=== PATIENT | female | born 1960 | race Caucasian/White ===

== ENCOUNTER → 2020-07-22 17:36 | Outpatient (CLI) | payer OTHER, SELFPAY ==
--- NOTE | ~2020-07-22 | MM_ITS ---
EXAMINATION: MM screening [facility] BI w [facility]ia HISTORY: Screening mammogram TECHNIQUE: Craniocaudal and mediolateral oblique 3-D tomosynthesis images were obtained and synthetic 2-D images were generated. CAD analysis was submitted and interpreted. COMPARISON: 07/07/2018, 07/02/2018, 06/29/2016 BREAST PARENCHYMAL COMPOSITION: The breasts are almost entirely fatty. FINDINGS: There is no evidence of suspicious mass, calcification, or architectural distortion to sugg est malignancy in either breast. There has been no suspicious interval change. IMPRESSION: 1. No mammographic evidence of malignancy. 2. Recommend routine screening mammography in one year. BI-RADS Category 1: Negative Reviewed, dictated and finalized at location A. [employer]
--- NOTE | ~2020-07-22 | DEXA_ITS ---
Bone Density Report Name: Lissa Goodson Age: 59 Sex: Female Ethnicity: White Date of : 1960 Indication: postmenopausal; screening for osteoporosis; height loss; Referring Provider: Lorrie Calle Study: Bone densitometry was performed. Exam Date: July 22, 2020 Accession number: [id number] Bone Density: Region BMD T-score Z-score Classification AP Spine (L1-L4) 1.010 -0.3 1.1 Normal Femoral Neck (Left) 0.732 -1.1 0.2 Osteopenia Total Hip (Left) 0.948 0.1 1.0 Normal Femoral Neck (Right) 0.734 -1.0 0.2 Normal Total Hip (Right) 0.922 -0.2 0.8 Normal Total Hip Mean 0.935 -0.1 0.9 Normal World Health Organization criteria for BMD impression classify patients as: Normal (T-score at or above -1.0), Osteopenia (T-score between -1.0 and -2.5), or Osteoporosis (T-score at or below -2.5). 10-year Fracture Risk(1): Major Osteoporotic Fracture 7.1% Hip Fracture 0.4% Reported Risk Factors: [place] (), Neck BMD=0.732, BMI=27.9 (1) FRAX(R) Version 3.08. Fracture probability calculated for an untreated patient. Fracture probability may be lower if the patient has received treatment. Previous Exams: Region Exam Age BMD T-score BMD Change BMD Change Date g/cm2 vs Baseline vs Previous AP Spine(L1-L4) 07/22/2020 59 1.010 -0.3 -0.150* -0.024* 07/02/2017 56 1.035 -0.1 -0.126* -0.057* 06/17/2015 54 1.091 0.4 -0.069* -0.069* 05/14/2013 52 1.160 1.0 Total Hip(Left) 07/22/2020 59 0.948 0.1 -0.094* -0.037* 07/02/2017 56 0.985 0.4 -0.057* 0.022 06/17/2015 54 0.963 0.2 -0.079* -0.079* 05/14/2013 52 1.042 0.8 Total Hip(Right) 07/22/2020 59 0.922 -0.2 -0.111* -0.011 07/02/2017 56 0.934 -0.1 -0.100* -0.011 06/17/2015 54 0.945 0.0 -0.089* -0.089* 05/14/2013 52 1.034 0.8 *Denotes significance at 95% confidence level, LSC for AP Spine = 0.022 g/cm2, LSC for Total Hip = 0.027 g/cm2 Clinical Information Provided by Patient: Has used the following medications: Vitamin D, MULTI VIT Patient maximum height was 63.5 Menopause Age: 52 Drinks caffeinated beverages Onset of menses at age 12 Number of children 2 Impression: The patient has low bone mass, based on the Left Femoral Neck T-score. The patient has an estimated ten-year
== END ==
PROVIDERS: Visit Provider Student in an Organized Health Care Education/Training Program
DX: Z12.31 Encounter for screening mammogram for malignant neoplasm of breast (principal); Z78.0 Asymptomatic menopausal state; M85.852 Other specified disorders of bone density and structure, left thigh
CPT/HCPCS: 77063; 77067; 77080

== ENCOUNTER → 2021-05-11 09:18 | Outpatient (CLI) | payer OTHER, SELFPAY ==
[2021-05-11 18:14] LABS: SARS-CoV-2 RNA PCR Negative
== END ==
PROVIDERS: PCP Family Medicine; Visit Provider Physician Assistant
DX: R05.9 Cough, unspecified (principal); Z20.822 Contact with and (suspected) exposure to COVID-19
CPT/HCPCS: C9803; U0003; U0005

== ENCOUNTER 2021-07-18 00:27 | Day surgery (SDC) | payer BC, SELFPAY ==
[2021-07-06 14:17] VITALS: BMI 27.8
--- NOTE | 2021-07-15 13:06 | PM.HPGS ---
History of Present Illness History of Present Illness Consent: Risks, benefits, and alternatives have been discussed and questions answered. Patient agrees to proceed with procedure. Chief complaint: neoplasm screening Narrative: Lissa Goodson is a 60 year old female referred for colon cancer screening. Review of Systems Review of Systems: All systems reviewed & are unremarkable except as noted in HPI and below PMFSH Past Medical History Medical History Anxiety Depression GERD (gastroesophageal reflux disease) Hyperlipemia Surgical History Surgical History H/O left knee surgery History of 2 sections History of breast lump removal History of section History of dilation and curettage History of tubal ligation Family History Family History Father Hypertension, Onset Age: 80 Malignant neoplasm of prostate Family history of lung cancer, Onset Age: 80 Grandparent Family history of malignant neoplasm Family history of lung cancer Social History Social History Smoking status: Never smoker Second hand tobacco smoke exposure: No Alcohol intake: former Alcohol use details: very seldom Substance use type: does not use Living arrangements: with family Spiritual care concerns: No Meds Home Medications and Allergies Home Medications Medication Instructions Recorded Confirmed Type cholecalciferol (vitamin D3) 50 2,000 unit PO DAILY 06/17/19 07/06/21 History mcg (2,000 unit) tablet multivit with 1 tablet PO DAILY 06/17/19 07/06/21 History suhtsriv-teuf-ZK-lutein 8 mg iron-400 mcg-300 mcg tablet clobetasol 0.05 % topical cream 1 applic TOPICAL DAILY #30 g 06/15/20 07/06/21 Rx lorazepam 0.5 mg tablet 0.5 mg PO QHS PRN #30 tablet 03/22/21 07/06/21 Rx ascorbate calcium (vitamin C) 500 500 mg PO DAILY 05/25/21 07/06/21 History mg tablet Allergies Allergy/AdvReac Type Severity Reaction Status Date / Time No Known Allergies Allergy Verified 07/06/21 14:14 Exam Resp: Auscultation: clear to auscultation bilaterally Cardio: Rate: regular rate Rhythm: regular rhythm GI: GI Palp: Yes Soft to palpation and No Tenderness to palpation present (GI) Assessment and Plan Assessment and plan (1) Colon cancer screening: Code(s): Z12.11 - Encounter for screening for malignant neoplasm of colon Status: Acute Assessment and Plan: Colonoscopy with possible biopsy or polypectomy or cautery or injection of substances.
[2021-07-18 06:53] VITALS: BP 110/75; PULSE 77; RESP 20; TEMP 36.4; O2SAT 100; BMI 27.1
[2021-07-18] MEDS: LACTATED RINGERS 1,000 ML 150 ML IV CONT (07:12)
--- NOTE | 2021-07-18 07:15 | WPDANESEPPF ---
Anes - Initial Pre Proc Eval Procedure: Operation Date: 07/18/21 08:00 Proposed Procedures p Screening Colonoscopy - Manohar Gold MD Date/Time: 07/18/21 07:15 Surgeon: Manohar Gold MD Pre Op Diagnosis: neoplasm screening Patient Data Age: 60 Gender: F Height: 1.57 m Weight: 67.3 kg Last Vital Signs Temp 36.4 C 07/18/21 06:53 Pulse 77 07/18/21 06:53 Resp 20 07/18/21 06:53 BP 110/75 07/18/21 06:53 Pulse Ox 100 07/18/21 06:53 Allergies Allergy/AdvReac Type Severity Reaction Status Date / Time No Known Allergies Allergy Verified 07/06/21 14:14 Home Medications Medication Instructions Recorded Confirmed Type cholecalciferol (vitamin D3) 50 2,000 unit PO DAILY 06/17/19 07/06/21 History mcg (2,000 unit) tablet multivit with 1 tablet PO DAILY 06/17/19 07/06/21 History wdwholej-lrjn-DH-lutein 8 mg iron-400 mcg-300 mcg tablet clobetasol 0.05 % topical cream 1 applic TOPICAL DAILY #30 g 06/15/20 07/06/21 Rx lorazepam 0.5 mg tablet 0.5 mg PO QHS PRN #30 tablet 03/22/21 07/06/21 Rx ascorbate calcium (vitamin C) 500 500 mg PO DAILY 05/25/21 07/06/21 History mg tablet Patient hx anesthesia problems: none Family hx anesthesia problems: none Results Review: All pre-operative results and documents have been reviewed as part of the pre-operative evaluation. [facility] Past Medical History Medical History Anxiety Depression GERD (gastroesophageal reflux disease) Hyperlipemia Surgical History Surgical History H/O left knee surgery History of 2 sections History of breast lump removal History of section History of dilation and curettage History of tubal ligation Family History Family History Father Hypertension, Onset Age: 80 Malignant neoplasm of prostate Family history of lung cancer, Onset Age: 80 Grandparent Family history of malignant neoplasm Family history of lung cancer Social History Social History Smoking status: Never smoker Second hand tobacco smoke exposure: No Alcohol intake: former Alcohol use details: very seldom Substance use type: does not use Living arrangements: with family Spiritual care concerns: No Anes - Eval Final PreProcedure Day of Procedure 07/18/21 07:15 Patient weight: overweight Heart: regular rate and rhythm Lungs: clear to auscultation Airway: Mallampati scale class II Neurological: alert and oriented Last oral intake: >/= 8 hours ASA classification: II Emergent: no Anesthetic plan: proceed Anesthesia type and monitoring: general GIVS and standard monitoring Results Review: All pre-operative results and documents have been reviewed as part of the pre-operative evaluation. Informed Consent: The patient's anesthetic plan and its attendant risks and benefits were discussed with the patient/family/POA. Questions were solicited and answers provided to the satisfaction of the patient/family/POA.
[2021-07-18 08:08] VITALS: BP 81/49; PULSE 71; RESP 18; O2SAT 97
[2021-07-18 08:18] VITALS: BP 93/57; PULSE 66; RESP 17; O2SAT 98
[2021-07-18 08:28] VITALS: BP 111/75; PULSE 70; RESP 18; O2SAT 100
== END 2021-07-18 08:35 | disposition home or self-care (01) ==
PROVIDERS: PCP Family Medicine; Visit Provider Internal Medicine Gastroenterology
PROC: 0DJD8ZZ Inspection of Lower Intestinal Tract, Via Natural or Artificial Opening Endoscopic (ICD-10-PCS; CPT 45378; principal; 2021-07-18 08:00)
DX: Z12.11 Encounter for screening for malignant neoplasm of colon (principal); K57.30 Diverticulosis of large intestine without perforation or abscess without bleeding; K64.8 Other hemorrhoids; E78.5 Hyperlipidemia, unspecified; K21.9 Gastro-esophageal reflux disease without esophagitis; F41.8 Other specified anxiety disorders
CPT/HCPCS: 45378; J2704; J7120

== ENCOUNTER → 2021-10-28 07:12 | Outpatient (CLI) | payer BC, SELFPAY ==
--- NOTE | ~2021-10-28 | MM_ITS ---
EXAMINATION: MM screening [facility] BI w [facility] HISTORY: Screening TECHNIQUE: Craniocaudal and mediolateral oblique 3-D tomosynthesis images were obtained and synthetic 2-D images were generated. CAD analysis was submitted and interpreted. COMPARISON: Comparison to multiple prior studies sequentially, with oldest reviewed study dated 05/20. BREAST PARENCHYMAL COMPOSITION: Breast composed of scattered areas of fibroglandular density FINDINGS: There is no evidence of suspicious mass, calcification, or architectural distortion to sugg est malignancy in either breast. There has been no suspicious interval change. IMPRESSION: 1. No mammographic evidence of malignancy. 2. Recommend routine screening mammography in one year. BI-RADS Category 1: Negative Reviewed, dictated and finalized at location A.
== END ==
PROVIDERS: PCP Family Medicine; Visit Provider Student in an Organized Health Care Education/Training Program
DX: Z12.31 Encounter for screening mammogram for malignant neoplasm of breast (principal)
CPT/HCPCS: 77063; 77067

== ENCOUNTER → 2023-02-21 10:17 | Outpatient (CLI) | payer BC, SELFPAY ==
--- NOTE | ~2023-02-21 | MM_ITS ---
EXAMINATION: MM screening [facility] BI w [facility] HISTORY: Screening mammogram TECHNIQUE: Craniocaudal and mediolateral oblique 3-D tomosynthesis images were obtained and synthetic 2-D images were generated. CAD analysis was submitted and interpreted. COMPARISON: 10/28/2021, 07/22/2020 bilateral screening mammogram examinations BREAST PARENCHYMAL COMPOSITION: There are scattered areas of fibroglandular density. FINDINGS: Biopsy marker on the left; history of prior benign left breast biopsies. There is no eviden ce of suspicious mass, calcification, or architectural distortion to suggest malignancy in either dennis ast. There has been no suspicious interval change. IMPRESSION: 1. No mammographic evidence of malignancy. 2. Recommend routine screening mammography in one year. BI-RADS Category 1: Negative Reviewed, dictated and finalized at location A.
--- NOTE | ~2023-02-21 | DEXA_ITS ---
Bone Density Report Name: GELACIO LOVELACE Age: 62 Sex: Female Ethnicity: White Date of : 1960 Indication: postmenopausal; screening for osteoporosis; height loss; Referring Provider: ISAIAH LI M.D. Study: Bone densitometry was performed. Exam Date: February 21, 2023 Accession number: [id number] Bone Density: Region BMD T-score Z-score Classification AP Spine (L1-L4) 1.027 -0.2 1.4 Normal Femoral Neck (Left) 0.758 -0.8 0.6 Normal Total Hip (Left) 0.941 0.0 1.1 Normal Femoral Neck (Right) 0.753 -0.9 0.5 Normal Total Hip (Right) 0.916 -0.2 0.9 Normal Total Hip Mean 0.929 -0.1 1.0 Normal World Health Organization criteria for BMD impression classify patients as: Normal (T-score at or above -1.0), Osteopenia (T-score between -1.0 and -2.5), or Osteoporosis (T-score at or below -2.5). 10-year Fracture Risk: FRAX not reported because: All T-scores for Spine Total, Hip Total, Femoral Neck at or above -1.0 Previous Exams: Region Exam Age BMD T-score BMD Change BMD Change Date g/cm2 vs Baseline vs Previous AP Spine(L1-L4) 02/21/2023 62 1.027 -0.2 -0.134* 0.016 07/22/2020 59 1.010 -0.3 -0.150* -0.024* 07/02/2017 56 1.035 -0.1 -0.126* -0.057* 06/17/2015 54 1.091 0.4 -0.069* -0.069* 05/14/2013 52 1.160 1.0 Total Hip(Left) 02/21/2023 62 0.941 0.0 -0.101* -0.007 07/22/2020 59 0.948 0.1 -0.094* -0.037* 07/02/2017 56 0.985 0.4 -0.057* 0.022 06/17/2015 54 0.963 0.2 -0.079* -0.079* 05/14/2013 52 1.042 0.8 Total Hip(Right) 02/21/2023 62 0.916 -0.2 -0.117* -0.006 07/22/2020 59 0.922 -0.2 -0.111* -0.011 07/02/2017 56 0.934 -0.1 -0.100* -0.011 06/17/2015 54 0.945 0.0 -0.089* -0.089* 05/14/2013 52 1.034 0.8 *Denotes significance at 95% confidence level, LSC for AP Spine = 0.022 g/cm2, LSC for Total Hip = 0.027 g/cm2 Clinical Information Provided by Patient: Has used the following medications: Vitamin D, Calcium Patient maximum height was 63.5 Menopause Age: 52 Drinks caffeinated beverages Onset of menses at age 12 Number of children 2 Impression: The patient has normal bone mass. No significant bone loss was observed. Discussion: BONE DENSITY IS ABOVE THE VT
== END ==
PROVIDERS: PCP Obstetrics & Gynecology Gynecology; Visit Provider Obstetrics & Gynecology Gynecology
DX: Z12.31 Encounter for screening mammogram for malignant neoplasm of breast (principal); Z78.0 Asymptomatic menopausal state
CPT/HCPCS: 77063; 77067; 77080

== ENCOUNTER 2024-05-09 14:10 | Outpatient (CLI) | payer BC, SELFPAY ==
--- NOTE | ~2024-05-09 | MM_ITS ---
EXAMINATION: MM screening [facility] BI w toshia HISTORY: Screening mammogram TECHNIQUE: Craniocaudal and mediolateral oblique 3-D tomosynthesis images were obtained and synthetic 2-D images were generated. CAD analysis was submitted and interpreted. COMPARISON: 02/21/2023, 10/28/2021, 07/22/2020 BREAST PARENCHYMAL COMPOSITION:Not Dense. The breasts are almost entirely fatty FINDINGS: No suspicious mass, calcification, or architectural distortion are identified in either dennis ast to suggest malignancy. There has been no suspicious interval change. IMPRESSION: No mammographic evidence of malignancy. Recommend routine screening mammography in one year. BI-RADS Category 1: Negative Reviewed, dictated and finalized at location . [facility]
== END 2024-05-09 14:11 | disposition home or self-care (01) ==
PROVIDERS: PCP Family Medicine; Visit Provider Obstetrics & Gynecology Gynecology
DX: Z12.31 Encounter for screening mammogram for malignant neoplasm of breast (principal)
CPT/HCPCS: 77063; 77067